=== PATIENT | male | born 1960 | race Caucasian/White ===

== ENCOUNTER 2017-05-20 23:22 | Emergency (ER) | payer OTHER ==
[~2017-05-20] VITALS: Ht 172.7 cm; Wt 64.9 kg
== END 2017-05-21 00:37 | disposition home or self-care (01) ==
LOC: ED 23:22
PROC: 2W2AX4Z Dressing of Right Upper Arm using Bandage (ICD-10-PCS; principal; 2017-05-20)
DX: T22.251A Burn of second degree of right shoulder, initial encounter (principal); T21.21XA Burn of second degree of chest wall, initial encounter; W29.2XXA Contact with other powered household machinery, initial encounter; Z23 Encounter for immunization
CPT/HCPCS: 16020; 90471; 90715; 99282